=== PATIENT | male | born 1985 | race Caucasian/White ===

== ENCOUNTER 2020-12-26 09:55 | Emergency (ER) | payer OTHER ==
[~2020-12-26] VITALS: Ht 170.2 cm; Wt 75.7 kg
[2020-12-26 10:05] VITALS: BP 121/71
[2020-12-26] MEDS ORDERED: LIDO1ADH TP (10:20)
[2020-12-26] MEDS ORDERED: METH-38 PO (10:20)
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
== END 2020-12-26 10:28 | disposition home or self-care (01) ==
LOC: ER 09:55
DX: M54.5 Low back pain (principal); M53.3 Sacrococcygeal disorders, not elsewhere classified; M51.36 Other intervertebral disc degeneration, lumbar region
CPT/HCPCS: 99283

== ENCOUNTER 2021-01-23 11:52 | Emergency (ER) | payer OTHER ==
[~2021-01-23] VITALS: Ht 165.1 cm; Wt 75.7 kg
[~2021-01-23 11:52] MED LIST: LIDO1ADH TP; METH-38 PO
[2021-01-23 12:00] VITALS: BP 128/82
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
== END 2021-01-23 12:33 | disposition home or self-care (01) ==
LOC: ER 11:52
DX: H92.01 Otalgia, right ear (principal); H93.11 Tinnitus, right ear; R09.81 Nasal congestion
CPT/HCPCS: 99282